=== PATIENT | male | born 1980 | race Caucasian/White ===

== ENCOUNTER 2018-03-29 15:17 | Emergency (ER) | payer MEDICARE, OTHER ==
[~2018-03-29] VITALS: Ht 177.8 cm; Wt 88.2 kg
[2018-03-29 15:56] VITALS: BP 127/73
[2018-03-29 16:19] LABS: BASOPHILS # (AUTO) 0.03 x10^3/uL (0-0.1); BASOPHILS % (AUTO) 1 % (0-1); EOSINOPHILS # (AUTO) 0.13 x10^3/uL (0-0.4); EOSINOPHILS % (AUTO) 3 % (1-7); LYMPHOCYTES % (AUTO) 24 % (22-44); MD NO; MEAN CORPUSCULAR HEMOGLOBIN 34.4 pg (27.5-34.5); MEAN CORPUSCULAR HGB CONC 34.6 g/dL (33.2-36.2); MEAN CORPUSCULAR VOLUME 99.5 fL (81-97); MEAN PLATELET VOLUME 7.7 fL (7.4-10.4); MONOCYTES # (AUTO) 0.35 x10^3/uL (0.2-0.8); MONOCYTES % (AUTO) 8 % (2-9); NEUTROPHILS # (AUTO) 2.69 x10^3/uL (1.8-6.8); NEUTROPHILS % (AUTO) 64 % (42-75); PLATELET COUNT 208 x10^3/uL (130-400); RED BLOOD COUNT 4.02 x10^6/uL (4.38-5.82); RED CELL DISTRIBUTION WIDTH 13.2 % (9.4-14.8)
[2018-03-29 16:29] LABS: ANION GAP 4 mmol/L (5-15); CALCIUM 8.4 mg/dL (8.5-10.1); CHLORIDE 108 mmol/L (98-107); CREATININE 1.01 mg/dL (0.7-1.3)
== END 2018-03-29 17:00 | disposition home or self-care (01) ==
LOC: ED 16:50
DX: R20.2 Paresthesia of skin (principal); F20.9 Schizophrenia, unspecified; F17.200 Nicotine dependence, unspecified, uncomplicated
CPT/HCPCS: 36415; 80048; 85025; 99284

== ENCOUNTER 2018-04-22 06:44 | Emergency (ER) | payer MEDICARE ==
[~2018-04-22] VITALS: Ht 180.3 cm; Wt 83.5 kg
[2018-04-22 06:46] VITALS: BP 116/81
== END 2018-04-22 07:43 | disposition home or self-care (01) ==
LOC: ED 07:30
DX: H11.31 Conjunctival hemorrhage, right eye (principal); F20.9 Schizophrenia, unspecified; F29 Unspecified psychosis not due to a substance or known physiological condition
CPT/HCPCS: 99282

== ENCOUNTER 2018-07-15 15:01 | Emergency (ER) | payer MEDICARE ==
[~2018-07-15] VITALS: Ht 180.3 cm; Wt 79.1 kg
[2018-07-15 15:05] VITALS: BP 107/71
[2018-07-15] MEDS ORDERED: IBUPROFEN 200 MG TABLET ONE (15:21)
[2018-07-15] MEDS ORDERED: IBUPROFEN 200 MG TABLET PO ONE (15:30)
== END 2018-07-15 15:38 | disposition home or self-care (01) ==
LOC: ED 15:20
DX: M79.672 Pain in left foot (principal); F17.200 Nicotine dependence, unspecified, uncomplicated
CPT/HCPCS: 99284

== ENCOUNTER 2018-07-19 16:45 | Emergency (ER) | payer MEDICARE ==
[~2018-07-19] VITALS: Ht 180.3 cm; Wt 79.8 kg
[2018-07-19 16:53] VITALS: BP 119/75
== END 2018-07-19 18:02 | disposition home or self-care (01) ==
LOC: ED 17:50
DX: F17.201 Nicotine dependence, unspecified, in remission (principal); Z76.0 Encounter for issue of repeat prescription
CPT/HCPCS: 99281

== ENCOUNTER 2018-08-14 07:10 | Emergency (ER) | payer MEDICARE ==
[~2018-08-14] VITALS: Ht 180.3 cm; Wt 90.9 kg
[2018-08-14] MEDS ORDERED: KETOROLAC 30 MG/1 ML IM ONE (07:30)
[2018-08-14] MEDS ORDERED: KETOROLAC 30 MG/1 ML ONE (07:33)
[2018-08-14 08:48] VITALS: BP 107/59
== END 2018-08-14 08:49 | disposition home or self-care (01) ==
LOC: ED 07:38
DX: S20.212A Contusion of left front wall of thorax, initial encounter (principal); J15.9 Unspecified bacterial pneumonia; Z72.9 Problem related to lifestyle, unspecified; F17.210 Nicotine dependence, cigarettes, uncomplicated; Y04.8XXA Assault by other bodily force, initial encounter; Y93.89 Activity, other specified; Y92.89 Other specified places as the place of occurrence of the external cause; Y99.8 Other external cause status
CPT/HCPCS: 71101; 96372; 99283; J1885

== ENCOUNTER 2018-10-24 17:06 | Emergency (ER) | payer MEDICARE ==
[~2018-10-24] VITALS: Ht 182.9 cm; Wt 74.0 kg
[2018-10-24 17:32] VITALS: BP 127/79
== END 2018-10-24 19:01 | disposition home or self-care (01) ==
LOC: ED 18:15
DX: J06.9 Acute upper respiratory infection, unspecified (principal); F20.9 Schizophrenia, unspecified; Z72.9 Problem related to lifestyle, unspecified; Z88.1 Allergy status to other antibiotic agents
CPT/HCPCS: 71046; 87081; 87880; 99284

== ENCOUNTER 2018-12-25 01:58 | Emergency (ER) | payer MEDICARE ==
[~2018-12-25] VITALS: Ht 175.3 cm; Wt 70.0 kg
[2018-12-25 02:03] VITALS: BP 104/69
--- NOTE | 2018-12-25 02:29 | NUR ---
FIRST CONTACT WITH PT. PT C/O NUMBNESS IN ALL TEN FINGERS WITH THE COLD WEATHER X 3 DAYS. PT'S AOX4. RESPS EVEN AND UNLABORED. EDMD AT BEDSIDE TO ASSESS AT THIS TIME.
--- NOTE | 2018-12-25 02:45 | NUR ---
PT GIVEN DC INSTRUCTIONS. PT AMB TO DC WITH STEADY GAIT. NO ACUTE DISTRESS AT DC.
== END 2018-12-25 02:35 | disposition home or self-care (01) ==
LOC: ED 02:24
DX: R20.0 Anesthesia of skin (principal); F17.210 Nicotine dependence, cigarettes, uncomplicated; Z72.9 Problem related to lifestyle, unspecified
CPT/HCPCS: 99281